=== PATIENT | female | born 1995 | race Caucasian/White ===

== ENCOUNTER 2025-01-01 07:34 | Outpatient (RCR) | payer OTHER, SELFPAY | END 2025-01-01 23:59 | disposition home or self-care (01) | LOC: RPT 07:34 | PROVIDERS: ATTENDING PHYSICIAN Obstetrics & Gynecology | DX: O26.893 Other specified pregnancy related conditions, third trimester (principal); Z3A.30 30 weeks gestation of pregnancy; M62.89 Other specified disorders of muscle; N39.3 Stress incontinence (female) (male); R10.2 Pelvic and perineal pain; R39.15 Urgency of urination; Z73.6 Limitation of activities due to disability; M25.552 Pain in left hip; M25.551 Pain in right hip | CPT/HCPCS: 97163; 97530 ==

== ENCOUNTER → 2025-01-02 07:19 | Outpatient (REF) | payer OTHER, SELFPAY | LOC: REG 07:19 | PROVIDERS: ATTENDING PHYSICIAN Obstetrics & Gynecology; REFERRING PHYSICIAN Student in an Organized Health Care Education/Training Program | DX: Z34.82 Encounter for supervision of other normal pregnancy, second trimester (principal); Z34.03 Encounter for supervision of normal first pregnancy, third trimester; Z34.83 Encounter for supervision of other normal pregnancy, third trimester | CPT/HCPCS: 36415; 59025; 76815; 86850; 86900; 86901; 96372; J2790 ==

== ENCOUNTER 2025-01-29 13:14 | Outpatient (RCR) | payer OTHER, SELFPAY | END 2025-01-29 23:59 | disposition home or self-care (01) | LOC: RPT 13:14 | PROVIDERS: ATTENDING PHYSICIAN Obstetrics & Gynecology | DX: O26.893 Other specified pregnancy related conditions, third trimester (principal); Z3A.30 30 weeks gestation of pregnancy; M62.89 Other specified disorders of muscle; N39.3 Stress incontinence (female) (male); R10.2 Pelvic and perineal pain; R39.15 Urgency of urination; Z73.6 Limitation of activities due to disability; M25.552 Pain in left hip; M25.551 Pain in right hip | CPT/HCPCS: 97110; 97112; 97530 ==

== ENCOUNTER 2025-02-12 14:31 | Outpatient (RCR) | payer OTHER, SELFPAY | END 2025-02-12 23:59 | disposition home or self-care (01) | LOC: RPT 14:31 | PROVIDERS: ATTENDING PHYSICIAN Obstetrics & Gynecology | DX: O26.893 Other specified pregnancy related conditions, third trimester (principal); Z3A.30 30 weeks gestation of pregnancy; M62.89 Other specified disorders of muscle; N39.3 Stress incontinence (female) (male); R10.2 Pelvic and perineal pain; R39.15 Urgency of urination; Z73.6 Limitation of activities due to disability; M25.552 Pain in left hip; M25.551 Pain in right hip | CPT/HCPCS: 97112; 97530 ==

== ENCOUNTER 2025-03-04 08:26 | Inpatient (IN) | payer OTHER, SELFPAY ==
[2025-03-04 09:27] LABS: Hematocrit 31.6 % (37.0-47.0); Hemoglobin 11.0 g/dL (12.0-16.0); Mean Corp Hgb Conc. 34.8 g/dL (33.0-37.0); Mean Corpuscular Volume 84.7 fL (81.0-99.0); Nucleated Red Blood Cells % 0 %; Platelet Count 226 10^3/uL (130-400); Red Cell Dist. Width 13.4 % (11.5-14.5)
[2025-03-04 09:38] LABS: ALT (SGPT) 14 U/L (0-35); AST (SGOT) 20 U/L (14-36); Albumin 3.6 g/dl (3.5-5.0); Alkaline Phosphatase 173 U/L (38-126); Blood Urea Nitrogen 11 mg/dl (7-17); Calcium 9.0 mg/dl (8.4-10.2); Carbon Dioxide 16 mmol/L (22-30); Chloride 110 mmol/L (98-107); Glucose 82 mg/dl (70-99); Potassium 4.1 mmol/L (3.5-5.1); Sodium 134 mmol/L (135-145); Total Protein 6.6 g/dl (6.3-8.2); eGFR > 60.00
[2025-03-04 09:50] VITALS: BP 136/83; BMI 35.2
[2025-03-04] MEDS: LR 1000 IV ×2 (11:00→12:00)
[2025-03-04] MEDS: SUBLIMAZE 100 MCG EPIDURAL (11:21)
[2025-03-04] MEDS: FENTANYL/BUPIVACAINE 100 EPIDURAL (11:21)
[2025-03-04] MEDS: XYLOCAINE-MPF 1% VIAL 10 ML INFIL (17:13)
[2025-03-04] MEDS: TYLENOL 650 MG PO (18:10)
[2025-03-04] MEDS: COLACE 100 MG PO (20:08)
[2025-03-04] MEDS: MOTRIN 600 MG PO (20:08)
[2025-03-05 04:11] LABS: Hematocrit 28.7 % (37.0-47.0); Hemoglobin 10.1 g/dL (12.0-16.0)
[2025-03-05] MEDS: MOTRIN 600 MG PO ×2 (05:50→13:45)
[2025-03-05] MEDS: TYLENOL 650 MG PO (05:51)
[2025-03-05] MEDS: COLACE 100 MG PO ×2 (08:00→20:23)
[2025-03-05] MEDS: PRENATAL PLUS 1 TABLET PO ×2 (08:32)
[2025-03-05] MEDS: WELLBUTRIN XL (24 hour extended release) 150 MG PO (08:32)
[2025-03-06] MEDS: PRENATAL PLUS 1 TABLET PO (08:18)
[2025-03-06] MEDS: WELLBUTRIN XL (24 hour extended release) 150 MG PO (08:19)
[2025-03-06] MEDS: MOTRIN 600 MG PO (08:19)
[2025-03-06] MEDS: TYLENOL 650 MG PO (08:19)
[2025-03-06] MEDS: COLACE 100 MG PO (08:26)
[2025-03-06] MEDS: M-M-R II 0.5 ML SC (11:47)
[2025-03-07 13:19] LABS: Syphilis/T. pallidum Ab Reflex Negative (Negative)
== END 2025-03-06 14:26 | disposition home or self-care (01) | DRG 807 ==
LOC: LDRP 08:26
PROVIDERS: Obstetrics & Gynecology; ADMITTING PHYSICIAN Obstetrics & Gynecology
PROC: 0KQM0ZZ Repair Perineum Muscle, Open Approach (ICD-10-PCS; 2025-03-04)
PROC: 10E0XZZ Delivery of Products of Conception, External Approach (ICD-10-PCS; 2025-03-04)
PROC: 3E0134Z Introduction of Serum, Toxoid and Vaccine into Subcutaneous Tissue, Percutaneous Approach (ICD-10-PCS; 2025-03-06)
DX: O42.02 Full-term premature rupture of membranes, onset of labor within 24 hours of rupture (principal); Z37.0 Single live birth; Z3A.38 38 weeks gestation of pregnancy; O70.1 Second degree perineal laceration during delivery; O69.81X0 Labor and delivery complicated by cord around neck, without compression, not applicable or unspecified; O99.344 Other mental disorders complicating childbirth; F32.A Depression, unspecified; F41.9 Anxiety disorder, unspecified; O99.214 Obesity complicating childbirth; G43.909 Migraine, unspecified, not intractable, without status migrainosus; Z23 Encounter for immunization
CPT/HCPCS: 80053; 85014; 85018; 85025; 86780; 86850; 86870; 86900; 86901; 90707